=== PATIENT | female | born 1990 | race Caucasian/White ===

== ENCOUNTER 2019-12-28 18:52 | Emergency (ER) | payer MEDICAID, OTHER ==
[2019-12-28 21:04] VITALS: BP 141/84
[2019-12-28] MEDS ORDERED: Hydrocortisone SUPP* 25 MG SUPP (2.5%) PR ONE (22:46)
--- NOTE | 2019-12-28 22:52 | ED ---
GI/ HPI - HPI Summary HPI Summary: Patient is a 29 y/o F presenting to [facility] with complaints of rectal bleeding and pain for the past six days. Some LUQ abdominal pain and diarrhea are noted as well. Fever, nausea, vomiting are denied. She notes Hx of hemorrhoids and states that she has been treating her Sx with preparation H, tucks wipes, hydrocortisone cream with aloe, ibuprofen, and imodium. She is currently at [facility]. Home medications and allergies are reviewed. - History of Current Complaint Chief Complaint: EDRectalPain Time Seen by Provider: 12/28/19 22:35 Stated Complaint: GENERAL PER PT Hx Obtained From: Patient Onset/Duration: Started Days Ago, Still Present Timing: Lasting Days Current Severity: Severe Pain Intensity: 8 Location of Pain: Rectal Associated Signs and Symptoms: Positive: Rectal Pain, Diarrhea, Abdominal Pain, Other: - positive - rectal bleeding. Negative: Nausea, Vomiting, Fever - Allergy/Home Medications Allergies/Adverse Reactions: Allergies Allergy/AdvReac Type Severity Reaction Status Date / Time latex Allergy Rash Verified 12/28/19 19:04 Home Medications: Home Medications Divalproex Sodium [Depakote ER] 500 mg PO BID 12/28/19 [History Confirmed ] Folic Acid 1 mg PO DAILY 12/28/19 [History Confirmed 12/28/19] Hydrocortisone SUPP* [Anusol Hc Supp*] 25 mg UT BID #20 supp 12/28/19 [Rx] Hydrocortisone SUPP* [Anusol Hc Supp*] 25 mg UT BID #20 supp 12/28/19 [Rx] Multivitamin [Multiple Vitamins] 1 tab PO DAILY 12/28/19 [History Confirmed ] Naltrexone INJ [Vivitrol INJ] 380 mg IM MONTHLY 12/28/19 [History Confirmed ] Perphenazine 8 mg PO BID 12/28/19 [History Confirmed 12/28/19] Prazosin HCl [Minipress] 4 mg PO QPM 12/28/19 [History Confirmed 12/28/19] Thiamine Mononitrate (Vit B1) [Vitamin B-1] 100 mg PO DAILY 12/28/19 [History Confirmed 12/28/19] Trazodone HCl 150 mg PO QPM 12/28/19 [History Confirmed 12/28/19] PMH/Surg Hx/FS Hx/Imm Hx History: Reports: Other Problems/Disorders - hemorrhoids Sensory History: Denies: Hx Legally Blind, Hx Deafness Opthamlomology History: Denies: Hx Legally Blind EENT History: Denies: Hx Deafness Infectious Disease History: No Infectious Disease History: Denies: Traveled Outside the [place] in Last 30 Days - Family History Known Family History: Negative: Blood Disorder - Social History Alcohol Use: None Substance Use Type: Reports: None Smoking Status (MU): Never Smoked Tobacco Review of Systems Negative: Fever Positive: Abdominal Pain, Diarrhea. Negative: Vomiting, Nausea Genitourinary: Other - Rectal pain and bleeding All Other Systems Reviewed And Are Negative: Yes Physical Exam - Summary Physical Exam Summary: General: Well-developed, Morbidly obese female. No acute distress. HEENT: Normocephalic, Atraumatic. Eyes: Conjuctiva normal, PERRL. Oropharynx: Clear, mucous membranes moist, (-) exudates. Neck: Soft, FROM, (-) lymphadenopathy, (-) thyromegaly, (-) JVD. Cardiovascular: Normal sinus rhythm, (-) murmur. Lungs: Clear to auscultation bilaterally (-) wheezes, (-) rales, (-) rhonchi. Abdomen: Soft, mild LUQ tenderness to palpation, non-distended, (-) organomegaly , normal bowel sounds. Rectal Exam: Small 6 mm external hemorrhoid that is not inflamed and not erythematous; some rectal tenderness noted. Back: (-) CVA tenderness Extremities: No edema. Skin: Warm, dry, (-) rash. Neuro: Alert and oriented x3, moves all extremities equally. No ataxia. No gait disturbance. No sensory deficit. Normal strength, normal sensation. Psychiatric: Mood normal, affect normal. Triage Information Reviewed: Yes Vital Signs On Initial Exam: Initial Vitals Temp Pulse Resp BP Pulse Ox 97.6 F 87 16 120/85 98 12/28/19 19:01 12/28/19 19:01 12/28/19 19:01 12/28/19 19:01 12/28/19 19:01 Vital Signs Reviewed: Yes Procedures - Sedation Patient Received Moderate/Deep Sedation with Procedure: No Diagnostics - Vital Signs Vital Signs Temp Pulse Resp BP Pulse Ox 12/28/19 21:02 97.7 F 87 18 141/84 99 12/28/19 19:01 97.6 F 87 16 120/85 98 - Laboratory Lab Statement: Any lab studies that have been ordered have been reviewed, and results considered in the medical decision making process. [facility] Course/Dx - Course Course Of Treatment: 29-year-old female presents from [facility] with complains of rectal pain. She states she has hemorrhoids that are bothering her for 5-6 days. She states she had diarrhea before that. Has not had any constipation. Denies any fevers chills. No nausea vomiting. No significant abdominal pain. She states she's been trying talks pads and Preparation H suppositories. and hydrocortisone cream externally without relief. Physical exam patient has no abdominal tenderness. Rectal exam demonstrates a small external skin tag. Rectal pain. Incomplete rectal exam secondary to pain. Hydrocortisone suppositories prescribed. Discharged. Follow-up for any worsening symptoms. - Diagnoses Provider Diagnoses: Rectal pain Discharge ED - Sign-Out/Discharge Documenting (check all that apply): Patient Departure - discharge - Discharge Plan Condition: Stable Disposition: HOME Prescriptions: Hydrocortisone SUPP* [Anusol Hc Supp*] 25 mg UT BID #20 supp Hydrocortisone SUPP* [Anusol Hc Supp*] 25 mg UT BID #20 supp Patient Education Materials: Rectal Pain (ED) Referrals: [facility] [Outside] - 3 Days Additional Instructions: PLEASE RETURN TO ED FOR ANY NEW OR WORSENING SYMPTOMS. PLEASE FOLLOW-UP WITH YOUR PRIMARY CARE PHYSICIAN WITHIN THREE DAYS. - Billing Disposition and Condition Condition: STABLE Disposition: Home - Attestation Statements Document Initiated by Sada: Yes Documenting Joseibe: AZEEM BILLINGS Provider For Whom Sada is Documenting (Include Credential): JUAN BARAHONA MD Scribe Attestation: AZEEM Sadler, scribed for JUAN BARAHONA MD on 12/29/19 at 0538. Scribe Documentation Reviewed: Yes Provider Attestation: The documentation as recorded by the AZEEM ochoa accurately reflects the service I personally performed and the decisions made by , JUAN BARAHONA MD Status of Scribe Document: Viewed
[2019-12-29 00:01] LABS: HIV 4th Generation Nonreactive (Nonreactive)
== END 2019-12-28 23:35 | disposition home or self-care (01) ==
LOC: ED 18:52
DX: K62.89 Other specified diseases of anus and rectum (principal); Z79.899 Other long term (current) drug therapy; Z91.040 Latex allergy status
CPT/HCPCS: 36415; 87389; 99282; A9270-GY